=== PATIENT | male | born 1960 | race African-American/Black ===

== ENCOUNTER 2018-06-01 05:37 | Outpatient (CLI) | payer OTHER ==
[~2018-06-01] VITALS: Ht 188 cm; Wt 90.7 kg
[2018-06-01] MEDS ORDERED: GLIP5TAB13 PO (14:31)
[2018-06-01] MEDS ORDERED: ASPI-586 PO (14:31)
[2018-06-01] MEDS ORDERED: METF-399 PO (14:31)
== END 2018-06-01 14:32 | disposition home or self-care (01) ==
LOC: PREOP 05:37
PROVIDERS: ATTEND Surgery
DX: Z01.818 Encounter for other preprocedural examination (principal)

== ENCOUNTER 2018-06-08 06:40 | Day surgery (SDC) | payer OTHER ==
[~2018-06-08] VITALS: Ht 188 cm; Wt 90.7 kg
[~2018-06-08 06:40] MED LIST: ASPI-586 PO; GLIP5TAB13 PO; METF-399 PO
--- OUTSIDE RECORDS SUMMARY | 2018-06-08 06:42 | XMS REPORT ---
Author Author RADHA CAMPBELL [facility] Address [address] [place] [address] Care Team Providers Care Manager Stone Name Role Phone RADHA CAMPBELL Unavailable PROBLEMS Type Condition ICD9-CM Code SBG81-SS Code Onset Dates Condition Status SNOMED Code Problem Mixed hyperlipidemia E78.2 Active 360371088 Problem Erectile dysfunction, unspecified erectile dysfunction type N52.9 Active 796434880 Problem Non-insulin dependent type 2 diabetes mellitus E11.9 Active 57157187 ALLERGIES No Information ENCOUNTERS Encounter Location Date Diagnosis [facility] [id number] [place] [address] 70626- [phone] Jul, [facility] [address] 92630- 3494 Jun, [facility] [id number] [place] [address] 59582- 8867 May, [facility] [id number] [place] [address] 91022- 2182 Apr, [facility] [id number] [place] [address] 90574- 5006 Apr, [facility] [id number] [place] [address] 32963- 1013 Apr, [facility] [id number] [place] [address] 31443- 0577 Apr, [facility] [id number] [place] [address] [phone]- [phone] Apr, Non-insulin dependent type 2 diabetes mellitus E11.9 ; Erectile dysfunction, unspecified erectile dysfunction type N52.9 and Mixed hyperlipidemia E78.2 [facility] [id number] [place] [address] 73359- 4831 Aug, Acute nasopharyngitis J00 IMMUNIZATIONS No Known Immunizations SOCIAL HISTORY Never Assessed REASON FOR VISIT 1 mo f/u DM Ed PLAN OF CARE VITAL SIGNS MEDICATIONS Unknown Medications RESULTS No Results PROCEDURES No Known procedures INSTRUCTIONS MEDICATIONS ADMINISTERED No Known Medications MEDICAL (GENERAL) HISTORY Type Description Date Medical History Diabetes Type II Hospitalization History Heat Stroke 1974
--- OUTSIDE RECORDS SUMMARY | 2018-06-08 06:42 | XMS REPORT ---
Author Author RADHA CAMPBELL [facility] Address [address] [place] [address] Care Team Providers Care Medical Instructor Name Role Phone RADHA CAMPBELL Unavailable PROBLEMS Type Condition ICD9-CM Code WVN05-EW Code Onset Dates Condition Status SNOMED Code Problem Mixed hyperlipidemia E78.2 Active 575594907 Problem Erectile dysfunction, unspecified erectile dysfunction type N52.9 Active 032240136 Problem Non-insulin dependent type 2 diabetes mellitus E11.9 Active 71066283 ALLERGIES No Information ENCOUNTERS Encounter Location Date Diagnosis [place] [id number] [place] [address] 21939- [phone] Jul, [facility] [address] 31872- [phone] Jun, [facility] [id number] [place] [address] 87534- 4906 May, [facility] [id number] [place] [address] 53058- 2945 Apr, [facility] [id number] [place] [address] 16830- 2787 Apr, [facility] [id number] [place] [address] 31439- 3183 Apr, [facility] [id number] [place] [address] 16803- 2198 Apr, [facility] [id number] [place] [address] 52422- 9226 Apr, Non-insulin dependent type 2 diabetes mellitus E11.9 ; Erectile dysfunction, unspecified erectile dysfunction type N52.9 and Mixed hyperlipidemia E78.2 [facility] [id number] [place] [address] [phone] Aug, Acute nasopharyngitis J00 IMMUNIZATIONS No Known Immunizations SOCIAL HISTORY Never Assessed REASON FOR VISIT Requests return call PLAN OF CARE VITAL SIGNS MEDICATIONS Unknown Medications RESULTS No Results PROCEDURES No Known procedures INSTRUCTIONS MEDICATIONS ADMINISTERED No Known Medications MEDICAL (GENERAL) HISTORY Type Description Date Medical History Diabetes Type II Hospitalization History Heat Stroke 1973
--- OUTSIDE RECORDS SUMMARY | 2018-06-08 06:42 | XMS REPORT ---
Author Author RADHA ACMPBELL [facility] Address [address] [place] [address] Care Team Providers Care Laborer Powerhouse Name Role Phone RADHA CAMPBELL Unavailable PROBLEMS Type Condition ICD9-CM Code [id number] Code Onset Dates Condition Status SNOMED Code Problem Mixed hyperlipidemia E78.2 Active 841328408 Problem Erectile dysfunction, unspecified erectile dysfunction type N52.9 Active 405272328 Problem Non-insulin dependent type 2 diabetes mellitus E11.9 Active 44724512 ALLERGIES No Information ENCOUNTERS Encounter Location Date Diagnosis [facility] [id number] [place] [address] 47159- 9261 January, [facility] [id number] [place] [address] 56440- 2451 Jul, [facility] [id number] [place] [address] 49348- 8042 Jun, [facility] [id number] [place] [address] 86973- 5137 May, [facility] [id number] [place] [address] 13169- 6718 Apr, [facility] [id number] [place] [address] 19717- 8517 Apr, [facility] [id number] [place] [address] 56037- 9968 Apr, [facility] [id number] [place] [address] 99206- 3537 Apr, [facility] [id number] [place] [address] 75572- 6294 Apr, Non-insulin dependent type 2 diabetes mellitus E11.9 ; Erectile dysfunction, unspecified erectile dysfunction type N52.9 and Mixed hyperlipidemia E78.2 [facility] [address] [facility] [id number] [place] [address]- [address] Aug, Acute nasopharyngitis J00 IMMUNIZATIONS No Known Immunizations SOCIAL HISTORY Never Assessed REASON FOR VISIT 6 mo DM ed f/u PLAN OF CARE VITAL SIGNS MEDICATIONS Unknown Medications RESULTS No Results PROCEDURES No Known procedures INSTRUCTIONS MEDICATIONS ADMINISTERED No Known Medications MEDICAL (GENERAL) HISTORY Type Description Date Medical History Diabetes Type II Hospitalization History Heat Stroke 1974
--- OUTSIDE RECORDS SUMMARY | 2018-06-08 06:42 | XMS REPORT ---
Author Author RADHA CAMPBELL [facility] Address [address] [place] [address] Care Team Providers Care Inventory Coordinator Name Role Phone RADHA CAMPBELL Unavailable PROBLEMS Type Condition ICD9-CM Code [id number] Code Onset Dates Condition Status SNOMED Code Problem Mixed hyperlipidemia E78.2 Active 519940003 Problem Erectile dysfunction, unspecified erectile dysfunction type N52.9 Active 322062639 Problem Non-insulin dependent type 2 diabetes mellitus E11.9 Active 42644506 ALLERGIES No Information ENCOUNTERS Encounter Location Date Diagnosis [place] [id number] [place] [address] [phone]- [phone] Jul, [facility] [address] 64133- 8299 Jun, [facility] [id number] [place] [address] 32415- 8052 May, [facility] [id number] [place] [address] 42260- 0533 Apr, [facility] [id number] [place] [address] 09940- 0080 Apr, [facility] [id number] [place] [address] 09696- 6469 Apr, [facility] [id number] [place] [address] 20045- 7774 Apr, [facility] [id number] [place] [address] 83237- 6377 Apr, Non-insulin dependent type 2 diabetes mellitus E11.9 ; Erectile dysfunction, unspecified erectile dysfunction type N52.9 and Mixed hyperlipidemia E78.2 [facility] [id number] [place] [address] [phone] Aug, Acute nasopharyngitis J00 IMMUNIZATIONS No Known Immunizations SOCIAL HISTORY Never Assessed REASON FOR VISIT DM ed declined PLAN OF CARE VITAL SIGNS MEDICATIONS Unknown Medications RESULTS No Results PROCEDURES No Known procedures INSTRUCTIONS MEDICATIONS ADMINISTERED No Known Medications MEDICAL (GENERAL) HISTORY Type Description Date Medical History Diabetes Type II Hospitalization History Heat Stroke 1973
--- OUTSIDE RECORDS SUMMARY | 2018-06-08 06:43 | XMS REPORT ---
Author Author CRISTIANO MEYER [facility] Address [address] [place] [address] Care Team Providers Care Sales Project Administrator Name Role Phone CRISTIANO MEYER Unavailable PROBLEMS Type Condition ICD9-CM Code BPC10-KE Code Onset Dates Condition Status SNOMED Code Assessment Acute nasopharyngitis J00 Aug, Active 19905972 ALLERGIES Substance Reaction Event Type Date Status N.K.D.A. Unknown Non Drug Allergy Aug, Unknown SOCIAL HISTORY No smoking Hx information available PLAN OF CARE VITAL SIGNS Weight 191.8 lbs 2016-08-20 Heart Rate 78 bpm 2016-08-20 Respiratory Rate 18 2016-08-20 Blood pressure systolic 136 mmHg 2016-08-20 Blood pressure diastolic 66 mmHg 2016-08-20 MEDICATIONS Medication Instructions Dosage Frequency Start Date End Date Duration Status Benzonatate 200 mg Orally Three times a day 1 capsule 8h Aug, Aug, 05 days Active RESULTS No Results PROCEDURES Procedure Date Ordered Related Diagnosis Body Site Office Visit, Est Pt., Level 2 Aug 20, 2016 IMMUNIZATIONS No Known Immunizations
--- OUTSIDE RECORDS SUMMARY | 2018-06-08 06:43 | XMS REPORT ---
Author Author RADHA CAMPBELL [facility] Address [address] [place] [address] Care Team Providers Care Sportspersons Name Role Phone RADHA CAMPBELL Unavailable PROBLEMS Type Condition ICD9-CM Code ENQ84-WT Code Onset Dates Condition Status SNOMED Code Problem Mixed hyperlipidemia E78.2 Active 971095153 Problem Erectile dysfunction, unspecified erectile dysfunction type N52.9 Active 734624726 Problem Non-insulin dependent type 2 diabetes mellitus E11.9 Active 53714245 ALLERGIES No Information ENCOUNTERS Encounter Location Date Diagnosis [place] [id number] [place] [address] 74192- 4769 Jul, [facility] [address] 05496- [phone] Jun, [facility] [id number] [place] [address] 85332- 2489 May, [facility] [id number] [place] [address] 02364- 3314 Apr, [facility] [id number] [place] [address] 89451- 9588 Apr, [facility] [id number] [place] [address] 90830- 3387 Apr, [facility] [id number] [place] [address] 94342- 0366 Apr, [facility] [id number] [place] [address] 11544- 1619 Apr, Non-insulin dependent type 2 diabetes mellitus E11.9 ; Erectile dysfunction, unspecified erectile dysfunction type N52.9 and Mixed hyperlipidemia E78.2 [facility] [id number] [place] [address] [phone] Aug, Acute nasopharyngitis J00 IMMUNIZATIONS No Known Immunizations SOCIAL HISTORY Never Assessed REASON FOR VISIT DM ed PLAN OF CARE VITAL SIGNS MEDICATIONS Unknown Medications RESULTS No Results PROCEDURES No Known procedures INSTRUCTIONS MEDICATIONS ADMINISTERED No Known Medications MEDICAL (GENERAL) HISTORY Type Description Date Medical History Diabetes Type II Hospitalization History Heat Stroke 1974
--- OUTSIDE RECORDS SUMMARY | 2018-06-08 06:43 | XMS REPORT ---
Author Author RADHA CAMPBELL [facility] Address [address] [place] [address] Care Team Providers Care Knuckle Strap Sewer Name Role Phone RADHA CAMPBELL Unavailable PROBLEMS Type Condition ICD9-CM Code [id number] Code Onset Dates Condition Status SNOMED Code Problem Mixed hyperlipidemia E78.2 Active 468735551 Problem Erectile dysfunction, unspecified erectile dysfunction type N52.9 Active 839303556 Problem Non-insulin dependent type 2 diabetes mellitus E11.9 Active 07210655 ALLERGIES No Known Allergies ENCOUNTERS Encounter Location Date Diagnosis [place] [address] 7[address]- [phone] Jul, [facility] [address] 97765- 2132 Jun, [facility] [id number] [place] [address] 53140- 9400 May, [facility] [id number] [place] [address] 48902- 3445 Apr, [facility] [id number] [place] [address] 15149- 5411 Apr, [facility] [id number] [place] [address] 50578- 6853 Apr, [facility] [id number] [place] [address] 86638- 0113 Apr, [facility] [address] 52543- 7802 Apr, Non-insulin dependent type 2 diabetes mellitus E11.9 ; Erectile dysfunction, unspecified erectile dysfunction type N52.9 and Mixed hyperlipidemia E78.2 [facility] [address] 99684- 2736 Aug, Acute nasopharyngitis J00 IMMUNIZATIONS No Known Immunizations SOCIAL HISTORY Never Assessed REASON FOR VISIT Raimundo Carroll-AdanlilyNeisha, Has had lab testing done at work that he would like to f/u on PLAN OF CARE Activity Details Follow Up 3 Months with Abraham watts Reason: VITAL SIGNS Height 73 in 2017-05-12 Weight 201 lbs 2017-05-12 Temperature 97.2 degrees Fahrenheit 2017-05-12 Heart Rate 70 bpm 2017-05-12 Respiratory Rate 18 2017-05-12 Oximetry 98 % 2017-05-12 BMI 26.52 kg/m2 2017-05-12 Blood pressure systolic 130 mmHg 2017-05-12 Blood pressure diastolic 72 mmHg 2017-05-12 MEDICATIONS Medication Instructions Dosage Frequency Start Date End Date Duration Status Viagra 100 mg Orally as directed, PRN 1 tablet Apr, Active Metformin HCl 500 MG Orally Twice a day 1 tablet with meals 12h Active GlipiZIDE 5 mg Orally twice a day 1 tablet 12h Active RESULTS No Results PROCEDURES Procedure Date Ordered Result Body Site MEASURE BLOOD OXYGEN LEVEL May 12, 2017 GLYCATED HEMOGLOBIN TEST May 12, 2017 INSTRUCTIONS MEDICATIONS ADMINISTERED No Known Medications MEDICAL (GENERAL) HISTORY Type Description Date Medical History Diabetes Type II Hospitalization History Heat Stroke 1973
--- OUTSIDE RECORDS SUMMARY | 2018-06-08 06:43 | XMS REPORT ---
Author Author RADHA CAMPBELL [facility] Address [address] [place] [address] Care Team Providers Care Art Historian Name Role Phone RADHA CAMPBELL Unavailable PROBLEMS Type Condition ICD9-CM Code BUX36-CM Code Onset Dates Condition Status SNOMED Code Problem Mixed hyperlipidemia E78.2 Active 412791328 Problem Erectile dysfunction, unspecified erectile dysfunction type N52.9 Active 921770475 Problem Non-insulin dependent type 2 diabetes mellitus E11.9 Active 78804392 ALLERGIES No Information ENCOUNTERS Encounter Location Date Diagnosis [id number] [place] [address] 34317- 6843 Jul, [facility] [address] 48050- 5121 Jun, [facility] [id number] [place] [address] 30496- 4932 May, [facility] [id number] [place] [address] 01663- 5959 Apr, [facility] [id number] [place] [address] 47456- 4407 Apr, [facility] [id number] [place] [address] 51127- 7575 Apr, [facility] [id number] [place] [address] 80643- 8724 Apr, [facility] [id number] [place] [address] 62473- 2886 Apr, Non-insulin dependent type 2 diabetes mellitus E11.9 ; Erectile dysfunction, unspecified erectile dysfunction type N52.9 and Mixed hyperlipidemia E78.2 [facility] [id number] [place] [address] [phone] Aug, Acute nasopharyngitis J00 IMMUNIZATIONS No Known Immunizations SOCIAL HISTORY Never Assessed REASON FOR VISIT Requests return call PLAN OF CARE VITAL SIGNS MEDICATIONS Unknown Medications RESULTS No Results PROCEDURES No Known procedures INSTRUCTIONS MEDICATIONS ADMINISTERED No Known Medications MEDICAL (GENERAL) HISTORY Type Description Date Medical History Diabetes Type II Hospitalization History Heat Stroke 1973
--- OUTSIDE RECORDS SUMMARY | 2018-06-08 06:43 | XMS REPORT ---
Author Author HUNTER URENA [facility] Address [address] [place] [address] Care Team Providers Care Top Distribution Executive Name Role Phone HUNTER URENA Unavailable PROBLEMS Type Condition ICD9-CM Code QTK87-EB Code Onset Dates Condition Status SNOMED Code Problem Mixed hyperlipidemia E78.2 Active 037762912 Problem Erectile dysfunction, unspecified erectile dysfunction type N52.9 Active 163778914 Problem Non-insulin dependent type 2 diabetes mellitus E11.9 Active 55790714 ALLERGIES No Information ENCOUNTERS Encounter Location Date Diagnosis [facility] [id number] [place] [address] 92349- [phone] Jul, [facility] [id number] [place] [address] 32361- 1445 Jun, [facility] [id number] [place] [address] 46071- 6467 May, [facility] [id number] [place] [address] 59027- 4500 Apr, [facility] [id number] [place] [address] 04105- 0835 Apr, [facility] [id number] [place] [address] 74351- 3156 Apr, [facility] [id number] [place] [address] 12529- 8746 Apr, [facility] [id number] [place] [address] 75458- 4479 Apr, Non-insulin dependent type 2 diabetes mellitus E11.9 ; Erectile dysfunction, unspecified erectile dysfunction type N52.9 and Mixed hyperlipidemia E78.2 [facility] [id number] [place] [address] [phone]- 8922 Aug, Acute nasopharyngitis J00 IMMUNIZATIONS No Known [...]
--- OUTSIDE RECORDS SUMMARY | 2018-06-08 06:43 | XMS REPORT ---
Author Author RADHA CAMPBELL [facility] Address [address] [place] [address] Care Team Providers Care Performance Test Consultant Name Role Phone RADHA CAMPBELL Unavailable PROBLEMS Type Condition ICD9-CM Code TIS16-JG Code Onset Dates Condition Status SNOMED Code Problem Mixed hyperlipidemia E78.2 Active 865657150 Problem Erectile dysfunction, unspecified erectile dysfunction type N52.9 Active 696065342 Problem Non-insulin dependent type 2 diabetes mellitus E11.9 Active 40765661 ALLERGIES No Information ENCOUNTERS Encounter Location Date Diagnosis [place] [id number] [place] [address] 13092- 0461 Jul, [facility] [address] 8[address]37- 1012 Jun, [facility] [id number] [place] [address] 20902- 2641 May, [facility] [id number] [place] [address] 93660- 8570 Apr, [facility] [id number] [place] [address] 69971- [phone] Apr, [facility] [id number] [place] [address] 24106- 8892 Apr, [facility] [id number] [place] [address] 24047- 4802 Apr, [facility] [id number] [place] [address] 97598- 2942 Apr, Non-insulin dependent type 2 diabetes mellitus E11.9 ; Erectile dysfunction, unspecified erectile dysfunction type N52.9 and Mixed hyperlipidemia E78.2 [facility] [id number] [place] [address] 33010- 6832 Aug, Acute nasopharyngitis J00 IMMUNIZATIONS No Known Immunizations SOCIAL HISTORY Never Assessed REASON FOR VISIT 1 wk f/u DM Ed PLAN OF CARE VITAL SIGNS MEDICATIONS Unknown Medications RESULTS No Results PROCEDURES No Known procedures INSTRUCTIONS MEDICATIONS ADMINISTERED No Known Medications MEDICAL (GENERAL) HISTORY Type Description Date Medical History Diabetes Type II Hospitalization History Heat Stroke 1974
[2018-06-08] MEDS ORDERED: LACTATED RINGERS 1,000 ML IV ONE (07:06)
[2018-06-08] MEDS ORDERED: LIDOCAINE PF 2% 2 ML (XYLOCAINE) VIAL ONE (07:11)
[2018-06-08] MEDS ORDERED: PROPOFOL INJECTION 50 ML IV ONE (07:11)
[2018-06-08 07:27] VITALS: BP 138/87
[2018-06-08] MEDS ORDERED: MIDAZOLAM 2 MG/2 ML (VERSED) VIAL ONE (08:08)
--- NOTE | 2018-06-08 08:56 | Progress Note-Pre Operative ---
Pre-Operative Progress Note H&P Reviewed The H&P was reviewed, patient examined and no changes noted. Time Seen by Provider: 08:08 Date H&P Reviewed: Jun 08, 2018 Time H&P Reviewed: 08:09 Pre-Operative Diagnosis: Screening colonoscopy MESFIN VELAZQUEZ DO Jun 08, 2018 08:56
--- NOTE | 2018-06-08 08:57 | Progress Note-Post Operative ---
Post-Operative Progess Note Surgeon (s)/Eligibility Examiner (s) Surgeon MESFIN VELAZQUEZ DO Eligibility Examiner: RAN Patel Pre-Operative Diagnosis Screening colonoscopy Post-Operative Diagnosis Same plus internal hemorrhoids Procedure & Operative Findings Date of Procedure 06/08/18 Procedure Performed/Findings Colonoscopy Anesthesia Type IV Sedation by SHIRT MARKER Estimated Blood Loss Estimated blood loss (mL): none Specimens/Packing Specimens Removed none MESFIN VELAZQUEZ DO Jun 08, 2018 08:57
--- NOTE | 2018-06-08 08:59 | Endoscopy Discharge Instruct ---
Endo Procedure/Findings Findings 1.: Internal Hemorrhoids Discharge Instructions - Activity: You might feel a little sleepy until tomorrow. This is due to the medicine you received to relax you. Until tomorrow, you should: NOT drive a car, operate machinery or power tools. NOT drink any alcoholic beverages. NOT make any important decisions or sign importortant papers. Do not return to work until tomorrow, unless otherwise instructed. Resume previous activities tomorrow. Diet: Start by taking liquids. If you tolerate liquids, advance to solid food. make an appointment for one week Notify Physician - If you experience excessive bleeding, unusual abdominal pain, fever, or chest pain, contact your doctor immediately. Follow-Up: - I have received and understand the above instructions and will call my doctor if I have any further questions. Patient Signature Date Nurse Signature Other (Relationship) MESFIN VELAZQUEZ DO Jun 08, 2018 08:59
[2018-06-08 09:10] VITALS: BP 123/72
[2018-06-08 09:40] VITALS: BP 140/71
[2018-06-08 09:52] VITALS: BP 140/71
--- NOTE | 2018-06-08 10:55 | OPERATIVE REPORT ---
DATE OF SERVICE: 06/08/2018 PREOPERATIVE DIAGNOSIS: Screening colonoscopy. POSTOPERATIVE DIAGNOSES: Screening colonoscopy plus internal hemorrhoids. PROCEDURE: Colonoscopy. SURGEON: Memo Yarbrough DO. TIRE AND LUBE TECHNICIAN: Isidro Gutierrez MS3. SPECIMENS: None. BLOOD LOSS: None. FLUIDS: Per anesthesia. POSTOPERATIVE CONDITION: Stable. INDICATION FOR PROCEDURE: The patient is a 58-year-old male, who has never had a colonoscopy and needs one for screening. FINDINGS: The patient had some internal hemorrhoids, but no other obvious pathology. PROCEDURE NOTE: After informed consent was obtained, the patient was brought to the endoscopy suite and placed on the bed in the left lateral decubitus position. He was administered IV sedation by the [employer], who then monitored his vitals the entire time, heart rate, blood pressure and pulse ox and the scope was then inserted, pushed up about 140 cm, able to get all the way to the cecum, took a picture of appendiceal orifice, noted the ileocecal valve and then slowly withdrew the scope insufflating to look circumferentially at the ramirez looking at the cecum up the ascending colon to the hepatic flexure, then down the transverse colon, the splenic flexure, into the descending colon and down to the sigmoid and finally into the rectum, retroflexed the rectal vault, saw some internal hemorrhoids probably grade I-II and I then removed the scope. The patient tolerated the procedure and he was recovered in the endoscopy suite. Job ID: [id number] DocumentID: [id number] Dictated Date: 06/08/2018 09:03:28 Pan Helper Date: 06/08/2018 10:54:55 Dictated By: MEMO YARBROUGH DO
--- NOTE | 2018-06-08 13:21 | Anesthesia-General Post-Op ---
MAC Patient Condition Mental Status/LOC: Same as Preop Cardiovascular: Satisfactory Nausea/Vomiting: Absent Respiratory: Satisfactory Pain: Controlled Complications: Absent Post Op Complications Complications None Follow Up Care/Instructions Patient Instructions None needed. Anesthesiology Discharge Order Discharge Order Patient is doing well, no complaints, stable vital signs, no apparent adverse anesthesia problems. No complications reported per nursing. RADHA AMOS CRNA Jun 08, 2018 13:21
== END 2018-06-08 10:00 | disposition home or self-care (01) ==
LOC: ENDO 06:40
PROVIDERS: ATTEND Surgery
DX: Z12.11 Encounter for screening for malignant neoplasm of colon (principal); K64.8 Other hemorrhoids; E11.9 Type 2 diabetes mellitus without complications; F17.210 Nicotine dependence, cigarettes, uncomplicated; Z79.84 Long term (current) use of oral hypoglycemic drugs; Z79.82 Long term (current) use of aspirin

== ENCOUNTER 2018-11-10 16:41 | Emergency (ER) | payer OTHER ==
[~2018-11-10] VITALS: Ht 188 cm; Wt 95.3 kg
--- NOTE | 2018-11-10 17:12 | ED Lower Extremity ---
General Chief Complaint: Lower Extremity Stated Complaint: LEFT KNEE INJURY Nursing Triage Note: PATIENT STATES HE SLIPPED ON ICE THIS MORNING AROUND 08:00 AM AND HIS LEFT KNEE TWISTED OUTWARD. HE HAS BEEN ABLE TO AMBULATE ON IT UNTIL THIS AFTERNOON WHEN THE PAIN BECAME TO SEVERE. HE STATES THE SWELLING BECAME WORSE THIS AFTERNOON. Nursing Sepsis Screen: No Definite Risk Source: patient Exam Limitations: no limitations (CAITIE LEBRON STUDENT) History of Present Illness Date Seen by Provider: Nov 10, 2018 Time Seen by Provider: 16:58 Initial Comments 58 y/o M presented for left knee pain and swelling after slipping on ice this morning in at about 8am. He stated that he felt like his leg went back and his body continued forward. He felt his knee twist when it occurred and it immediately swelled and caused pain. He was able to walk on it for a bit, but it has progressively swelled more and the pain has worsened. He put ice on it for about 3-4 hours without relief and is unable to bear weight at this time due to pain. He now rates his pain as a 10/10. He denies any other injuries. Onset: this morning Severity: severe Method of Injury: twisted Modifying Factors: Improves With Cold Therapy (mild relief with ice treatment) ; Worse With Movement (CAITIE LEBRON STUDENT) Initial Comments I have seen and evaluated the patient. I agree with above as indicated and I am overseeing and directing patient care. Pain/Injury Location: left knee (CHAIM COLLAZO) Allergies and Home Medications Allergies Coded Allergies: No Known Drug Allergies (Unverified , 06/01/18) Home Medications Aspirin 81 Mg Tablet.dr, 81 MG PO DAILY, (Reported) Glipizide 5 Mg Tablet, 5 MG PO BID, (Reported) Metformin HCl 1,000 Mg Tablet, 1,000 MG PO BID, (Reported) Patient Home Medication List Home Medication List Reviewed: Yes (CAITIE LEBRON STUDENT) Home Medication List Reviewed: Yes (CHAIM COLLAZO) Review of Systems Constitutional: No chills, No fever, No weakness Respiratory: No cough, No short of breath Cardiovascular: No chest pain Musculoskeletal: joint pain (left knee pain), joint swelling (left knee swelling, worse on lateral side); No muscle weakness Psychiatric/Neurological: No Symptoms Reported (VICAITIE Arnaldo LARIOS) Constitutional: see HPI; No chills, No fever, No weakness Musculoskeletal: see HPI, joint pain (left knee pain), joint swelling (left knee swelling, worse on lateral side) (CHAIM COLLAZO) All Other Systems Reviewed Negative Unless Noted: Yes (CHAIM COLLAZO) Past Ljljzbz-Cbxjoe-Feczrh Hx Past Med/Social Hx: Reviewed Nursing Past Med/Soc Hx (CHAIM COLLAZO) Patient Social History Alcohol Use: Denies Use Recreational Drug Use: No Smoking Status: Current Everyday Smoker Type Used: Cigarettes 2nd Hand Smoke Exposure: Yes Recent Foreign Travel: No Contact w/Someone Who Travel: No Recent Infectious Disease Expo: No Recent Hopitalizations: No (CAITIE LEBRON) Immunizations Up To Date PED Vaccines UTD: Yes (CAITIE LEBRON) Seasonal Allergies Seasonal Allergies: No (CAITIE LEBRON) Past Medical History Surgeries: No Respiratory: No Currently Using CPAP: No Currently Using BIPAP: No Cardiac: No Neurological: No Reproductive Disorders: No Sexually Transmitted Disease: No HIV/AIDS: No Genitourinary: No Gastrointestinal: No Musculoskeletal: No Endocrine: Yes (TYPE II) Diabetes, Non-Insulin dep HEENT: No Loss of Vision: Denies Hearing Impairment: Denies Cancer: No Psychosocial: No Integumentary: No Blood Disorders: No (VICAITIE Arnaldo LARIOS) Family Medical History Reviewed Nursing Family Hx (VICAITIE Arnaldo LARIOS) Reviewed Nursing Family Hx (CHAIM COLLAZO) No Pertinent Family Hx (VICAITIE Arnaldo LARIOS) Physical Exam Vital Signs Vital Signs - First Documented 11/10/18 11/10/18 16:45 18:51 Temp 98.3 Pulse 85 Resp 16 B/P (MAP) 154/72 (99) Pulse Ox 99 O2 Delivery Room Air (CHAIM COLLAZO) Vital Signs Capillary Refill : Less Than 3 Seconds (VICAITIE Arnaldo STUDENT) Height, Weight, BMI Height: 6'2.00" Weight: 210lbs. 0.0oz. 95.098913qs; 25.7 BMI Method:Stated General Appearance: WD/WN, mild distress Neck: full range of motion, normal inspection Cardiovascular: regular rate, rhythm, no JVD, no murmur Respiratory: chest non-tender, lungs clear, normal breath sounds, no respiratory distress Back: normal inspection, no CVA tenderness Hips: bilateral hip non-tender, bilateral hip normal inspection, bilateral hip normal range of motion, bilateral hip no evidence of injury Knees: right knee non-tender, right knee normal inspection, right knee normal range of motion, right knee no evidence of injury; left knee bone tenderness, left knee joint effusion, left knee pain (worse on the lateral aspect of the knee), left knee soft tissue tenderness, left knee swelling (lateral worse than medial) Ankles: bilateral ankle non-tender, bilateral ankle normal inspection, bilateral ankle normal range of motion, bilateral ankle no evidence of injury Feet: bilateral foot non-tender, bilateral foot normal range of motion, bilateral foot no evidence of injury Neurologic/Tendon: normal sensation, motor deficit (limited left knee ROM due to pain) Neurologic/Psychiatric: alert, normal mood/affect, oriented x 3 Skin: normal color, warm/dry (CAITIE LEBRON) General Appearance: WD/WN, no apparent distress Cardiovascular: normal peripheral pulses, regular rate, rhythm, no edema, no gallop, no JVD, no murmur Respiratory: chest non-tender, lungs clear, normal breath sounds, no respiratory distress, no accessory muscle use Knees: right knee non-tender, right knee normal inspection, right knee normal range of motion, right knee no evidence of injury; left knee bone tenderness, left knee joint effusion, left knee pain (worse on the lateral aspect of the knee), left knee soft tissue tenderness, left knee swelling (lateral worse than medial) Ankles: bilateral ankle non-tender, bilateral ankle normal inspection, bilateral ankle normal range of motion, bilateral ankle no evidence of injury Feet: bilateral foot non-tender, bilateral foot normal range of motion, bilateral foot no evidence of injury Neurologic/Tendon: normal sensation, motor deficit (limited left knee ROM due to pain) Neurologic/Psychiatric: alert, normal mood/affect, oriented x 3 Skin: normal color, warm/dry (CHAIM COLLAZO) Progress/Results/Core Measures Results/Orders My Orders Orders - CHAIM COLLAZO Knee, Left, 3 Views (11/10/18 17:06) (CHAIM COLLAZO) Vital Signs/I&O 11/10/18 11/10/18 16:45 18:51 Temp 98.3 98.7 Pulse 85 77 Resp 16 B/P (MAP) 154/72 (99) 177/91 (119) Pulse Ox 99 O2 Delivery Room Air (CHAIM COLLAZO) Blood Pressure Mean: 99 Departure Impression Primary Impression: Knee pain Qualified Codes: M25.562 - Pain in left knee Disposition: 01 HOME, SELF-CARE Condition: Stable Departure-Patient Inst. Decision time for Depature: 18:22 (CHAIM COLLAZO) Referrals: ERICKA LEE MD NO,LOCAL PHYSICIAN (PCP) Primary Care Physician RYAN CARDOSO MD Patient Instructions: Knee Sprain (DC) Add. Discharge Instructions: Ice to the sore areas at 20 minute intervals. Wear the knee immobilizer and use the crutches until you follow up. Tylenol and Motrin as directed by the bottle for pain relief. Do not exceed your daily limit of Tylenol. Follow-up with an orthopedic surgeon for further evaluation of the knee. Return back to the emergency room for worsening symptoms or concerns as needed. All discharge instructions reviewed with patient and/or family. Voiced understanding. CAITIE LEBRON Nov 10, 2018 17:12 CHAIM COLLAZO Nov 10, 2018 17:27
--- NOTE | 2018-11-10 18:12 | Diagnostic Imaging Report ---
INDICATION: Fall. Injury. COMPARISON: None. FINDINGS: Three views of the left knee joint demonstrate no acute fracture or dislocation. No focal osseous lesions are seen. No significant joint effusion is seen. The surrounding soft tissue structures are unremarkable. There are no radiopaque foreign bodies. There is mild calcified atherosclerosis. IMPRESSION: 1. No acute fractures or dislocations of the left knee joint. Dictated by: Dictated on workstation # [id number]
[2018-11-10] MEDS ORDERED: ACHD5005 PO (18:24)
[2018-11-10 18:51] VITALS: BP 177/91
--- NOTE | 2018-11-10 18:52 | NUR ---
PATIENT GIVEN CRUTCHES AND KNEE IMMOBILIZER APPLIED TO LEFT KNEE. PATIENT DEMONSTRATED CORRECT USE OF CRUTCHES.
== END 2018-11-10 18:53 | disposition home or self-care (01) ==
LOC: EDUNIT# 16:41 → ER 16:44
DX: M25.562 Pain in left knee (principal); E11.9 Type 2 diabetes mellitus without complications; F17.210 Nicotine dependence, cigarettes, uncomplicated; Z79.82 Long term (current) use of aspirin; Z79.4 Long term (current) use of insulin; W00.0XXA Fall on same level due to ice and snow, initial encounter; X50.1XXA Overexertion from prolonged static or awkward postures, initial encounter
CPT/HCPCS: 73562